=== PATIENT | male | born 1955 | race Caucasian/White ===

== ENCOUNTER → 2017-07-20 | Day surgery (SDC) | payer OTHER ==
[2017-07-19 13:57] VITALS: BMI 34.4
[~2017-07-20] MED LIST: Fentanyl 100 MCG/2 ML VIAL ONE; Lidocaine 1% PF 5 ML VIAL ONE; Midazolam HCl 2 mg/2 ml Vial ONE; Sodium Bicarbonate 2.5 MEQ/5 ML VIAL ONE
[2017-07-20 08:13] LABS: #Basophils 0.1 thou/uL (0.0-0.2); #Eosinphils 0.2 thou/uL (0.0-0.7); #Monocytes 0.5 thou/uL (0.11-0.59); #Neutrophils 4.6 thou/uL (1.40-6.50); %Basophils 0.8 % (0.0-1.0); %Eosinophils 2.2 % (0.0-10.0); %Lymphocytes 27.1 % (21.0-51.0); %Monocytes 6.7 % (0.0-10.0); %Neutrophils 63.2 % (42.0-75.0); Hemoglobin 13.9 g/dL (14.0-18.0); Mean Corpuscular HGB CONC 33.8 g/dL (32.0-36.0); Mean Corpuscular Hemoglobin 31.6 pg (27.0-31.0); Mean Corpuscular Volume 93.5 fl (80.0-94.0); Platelet Count 152 thou/uL (130-400); RBC Distribution Width 12.9 % (11.5-14.5); Red Blood Cell (RBC) Count 4.41 mill/uL (4.70-6.10); White Blood Cell (WBC) Count 7.2 thou/uL (4.8-10.8)
[2017-07-20 08:18] LABS: INR-International Normal Ratio 1.2; Prothrombin Time 14.9 SEC (12.0-14.7)
[2017-07-20 08:23] VITALS: TEMP 98.2
--- NOTE | 2017-07-20 12:19 | ULT ---
HEPATIC ULTRASOUND WITH HEPATIC DOPPLER EVALUATION INCLUDING SPECTRAL ANALYSIS AND COLOR FLOW: DATE: 07/20/17. HISTORY: Hepatitis. Abnormal laboratory values. FINDINGS: The liver is enlarged in craniocaudal dimensions measuring 20.6 cm. The liver also demonstrates incr eased echogenicity suggesting diffuse fatty infiltration. No focal hepatic lesion is appreciated on this exam. The pancreas is obscured by bowel gas. The spleen is at the upper limits of normal in size measuring 13 cm. The gallbladder and visualized portions of the IVC demonstrate a normal sonographic appearance. The right kidney is incompletely imaged on this exam, but where seen has a grossly normal sonographic satya earance. The common duct measures 0.3 cm in diameter, which is within normal limits. HEPATIC DOPPLER EVALUATION WITH SPECTRAL ANALYSIS AND COLOR FLOW: Arterial Doppler evaluation demonstrates arterial waveforms within the abdominal aorta as well as in the hepatic and splenic arteries. There is normal directional flow seen within the hepatic, portal, and splenic veins with venous waveforms seen in the visualized portion of the IVC. IMPRESSION: 1. Hepatomegaly with fatty infiltration of the liver. 2. No gallbladder calculi are seen, and the common duct is normal in caliber. 3. Hepatopetal flow demonstrated within the portal, hepatic, and splenic veins. POS: [facility]
--- NOTE | 2017-07-20 13:03 | ULT ---
CT GUIDED RANDOM LEFT HEPATIC LOBE BIOPSY: DATE: 07/20/17. HISTORY: Hepatitis, abnormal laboratory values. Liver biopsy was requested. TECHNIQUE: The procedure including the risks and complications were explained to the patient and informed consen t was obtained. The patient was placed on the sonography table in the supine position. Limited sono graphic evaluation of the liver was performed. An area in the mid epigastric region overlying the le ft hepatic lobe was marked, and the area was meticulously prepped and draped in the usual sterile fas hion. The skin and subcutaneous tissues were infiltrated with buffered 1% Lidocaine for local anesth esia at the intended puncture site. Conscious sedation was performed with the intravenous administra tion of 50 mcg of Fentanyl and 1 mg of Versed. A small skin incision was made. Utilizing concurrent real-time ultrasound guidance, a 17-gauge guide needle was advanced into the most peripheral aspect of the left hepatic lobe. Utilizing coaxial re hnique and concurrent real-time ultrasound guidance, a single 18-gauge core needle biopsy specimen wa s obtained. Two Gelfoam pledgets were placed through the introducer needle into the peripheral aspec t of the left hepatic lobe. The needle was removed, and hemostasis was achieved with direct pressure , which was applied for approximately 10 minutes. Post biopsy sonogram demonstrates echogenicity wit hin the region of biopsy related to placement of Gelfoam pledgets. No perihepatic fluid collection o r fluid is seen and there are no findings to suggest hematoma. The patient's vital signs remained stable during the procedure well as well post procedure. The eric ent was transported to radiology nurse's holding area for further monitoring prior to discharge. IMPRESSION: Technically successful ultrasound-guided biopsy left hepatic lobe. Pathology is currently pending. POS: [facility]
== END ==
LOC: ULT 06:50
PROVIDERS: ATTEND Internal Medicine Gastroenterology
PROC: 0FB23ZX Excision of Left Lobe Liver, Percutaneous Approach, Diagnostic (ICD-10-PCS; principal; 2017-07-20)
DX: K75.81 Nonalcoholic steatohepatitis (NASH) (principal); K21.9 Gastro-esophageal reflux disease without esophagitis; I10 Essential (primary) hypertension; M19.90 Unspecified osteoarthritis, unspecified site; Z79.899 Other long term (current) drug therapy; Z86.19 Personal history of other infectious and parasitic diseases; Z87.891 Personal history of nicotine dependence
CPT/HCPCS: 47000; 76705; 76942; 85025; 85610; 88307; 88313; 99152; 99153; J2001; J2250; J3010

== ENCOUNTER 2017-08-13 09:11 | Outpatient (CLI) | payer OTHER ==
[2017-08-13] MEDS ORDERED: ISOVUE-370 76%-LOCM 1 ML ONE (16:38)
== END 2017-08-13 09:12 | disposition home or self-care (01) ==
LOC: BICCT 09:11
PROVIDERS: ATTEND Internal Medicine Gastroenterology
DX: K74.60 Unspecified cirrhosis of liver (principal); K75.81 Nonalcoholic steatohepatitis (NASH); R10.31 Right lower quadrant pain; D35.01 Benign neoplasm of right adrenal gland; R16.1 Splenomegaly, not elsewhere classified
CPT/HCPCS: 74177